=== PATIENT | female | born 1995 | race Caucasian/White ===

== ENCOUNTER → 2020-10-09 | Outpatient (REF) | payer OTHER ==
[2020-10-09 21:40] LABS: CHLAMYDIA DNA AMPLIFICATION NEGATIVE (NEGATIVE); GC DNA AMPLIFICATION NEGATIVE (NEGATIVE)
== END ==
LOC: M LAB REF 17:07
PROVIDERS: ATTEND Physician Assistant
DX: N76.0 Acute vaginitis (principal)

== ENCOUNTER → 2020-12-06 | Outpatient (REF) | payer OTHER | LOC: M LAB REF 16:51 | PROVIDERS: ATTEND Physician Assistant | DX: N76.0 Acute vaginitis (principal) ==

== ENCOUNTER → 2020-12-26 | Outpatient (REF) | payer OTHER ==
[2020-12-26 13:26] LABS: HEMATOCRIT 38.9 % (36.0-47.0); HEMOGLOBIN 12.9 g/dl (12.0-15.5); MEAN CORPUSCULAR HGB CONC 33.2 g/dl (32.0-36.5); MEAN CORPUSCULAR VOLUME 93.5 fl (80.0-96.0); PLATELET COUNT, AUTOMATED 283 10^3/uL (150-450); RED BLOOD COUNT 4.16 10^6/uL (4.00-5.40); WHITE BLOOD COUNT 9.4 10^3/uL (4.0-10.0)
[2020-12-26 14:46] LABS: CHLAMYDIA DNA AMPLIFICATION NEGATIVE (NEGATIVE); GC DNA AMPLIFICATION NEGATIVE (NEGATIVE)
[2020-12-26 14:56] LABS: HEPATITIS C VIRUS ABY INDEX < 0.0 INDEX (<0.8); HIV 1&2 SCREEN CENTAUR NEGATIVE (NEGATIVE)
== END ==
LOC: M PLALAB 09:52
PROVIDERS: ATTEND Obstetrics & Gynecology
DX: Z34.91 Encounter for supervision of normal pregnancy, unspecified, first trimester (principal); Z3A.08 8 weeks gestation of pregnancy

== ENCOUNTER 2021-01-09 10:27 | Emergency (ER) | payer OTHER ==
[~2021-01-09] VITALS: Ht 154.9 cm; Wt 82.3 kg
[2021-01-09] MEDS ORDERED: PRENTAB53 PO (10:33)
--- NOTE | 2021-01-09 11:46 | REP ---
INDICATION: abdominal cramping; 11 weeks ; trauma last week. COMPARISON: None. TECHNIQUE: Real-time sonographic evaluation of gravid uterus performed. FINDINGS: There is a single living intrauterine gestation. The estimated gestational age is 10 weeks 6 days based on a crown-rump length of 40 mm. EDC is 08/01/2021. heart rate is 174 beats per minute. There is no subchorionic hemorrhage. The ovaries are not visualized. IMPRESSION: Viable intrauterine gestation, heart rate 174 beats per minute. No subchorionic hemorrhage. <Electronically signed by Evgeny Renae > 01/09/21 [id number]
[2021-01-09] MEDS ORDERED: CEPH500C PO (12:51)
[2021-01-09 12:57] VITALS: BP 111/73
== END 2021-01-09 13:30 | disposition home or self-care (01) ==
LOC: M ED 10:27
DX: O9A.211 Injury, poisoning and certain other consequences of external causes complicating pregnancy, first trimester (principal); R10.2 Pelvic and perineal pain; O23.40 Unspecified infection of urinary tract in pregnancy, unspecified trimester; Z3A.11 11 weeks gestation of pregnancy; Z88.2 Allergy status to sulfonamides

== ENCOUNTER → 2021-01-11 | Outpatient (REF) | payer OTHER ==
[~2021-01-11] MED LIST: CEPH500C PO; PRENTAB53 PO
== END ==
LOC: M LAB REF 16:35
PROVIDERS: ATTEND Family Medicine
DX: J02.9 Acute pharyngitis, unspecified (principal)

== ENCOUNTER → 2021-01-19 | Outpatient (REF) | payer OTHER | LOC: M SFHCWAGY 13:30 | PROVIDERS: ATTEND Advanced Practice Midwife | DX: Z36.89 Encounter for other specified antenatal screening (principal); Z34.91 Encounter for supervision of normal pregnancy, unspecified, first trimester ==

== ENCOUNTER 2021-02-14 12:53 | Emergency (ER) | payer OTHER ==
[~2021-02-14] VITALS: Ht 154.9 cm; Wt 80.6 kg
[2021-02-14] MEDS ORDERED: NS 1,000 ML IV ONE (15:20)
[2021-02-14] MEDS ORDERED: METOCLOPRAMIDE INJ 10MG/2ML VIAL (J2765 PER 1) IV ONE (15:20)
[2021-02-14 17:28] LABS: BASO % 0.3 % (0.0-1.0); EOS # 0.1 10^3/uL (0.0-0.5); EOS % 0.9 % (0.0-3.0); HEMATOCRIT 40.2 % (36.0-47.0); HEMOGLOBIN 13.3 g/dl (12.0-15.5); LYMPH # 2.5 10^3/uL (1.5-5.0); LYMPH % 27.1 % (24.0-44.0); MEAN CORPUSCULAR HEMOGLOBIN 30.4 pg (27.0-33.0); MEAN CORPUSCULAR HGB CONC 33.1 g/dl (32.0-36.5); MEAN CORPUSCULAR VOLUME 91.8 fl (80.0-96.0); MONO # 0.7 10^3/uL (0.0-0.8); MONO % 7.5 % (2.0-8.0); NEUTROPHILS % 63.8 % (36.0-66.0); PLATELET COUNT, AUTOMATED 259 10^3/uL (150-450); RED BLOOD COUNT 4.38 10^6/uL (4.00-5.40); WHITE BLOOD COUNT 9.4 10^3/uL (4.0-10.0)
[2021-02-14 17:54] LABS: ALBUMIN 3.5 GM/DL (3.2-5.2); ALT/SGPT 47 U/L (12-78); BILIRUBIN,DIRECT < 0.1 MG/DL (0.0-0.2); BILIRUBIN,TOTAL 0.4 MG/DL (0.2-1.0); BLOOD UREA NITROGEN 5 MG/DL (7-18); CALCIUM LEVEL 9.2 MG/DL (8.5-10.1); CARBON DIOXIDE LEVEL 25 MEQ/L (21-32); CHLORIDE LEVEL 104 MEQ/L (98-107); CREATININE FOR GFR 0.35 MG/DL (0.55-1.30); GLOMERULAR FILTRATION RATE > 60.0 (>60); GLUCOSE, FASTING 71 MG/DL (70-100); LIPASE 93 U/L (73-393); POTASSIUM SERUM 5.6 MEQ/L (3.5-5.1); SODIUM LEVEL 136 MEQ/L (136-145); TOTAL PROTEIN 7.6 GM/DL (6.4-8.2)
--- NOTE | 2021-02-14 18:02 | REP ---
INDICATION: n/v unable to get heart tones with doppler. COMPARISON: 01/09/2021. TECHNIQUE: Real-time sonographic evaluation of gravid uterus performed. FINDINGS: There is a single living intrauterine gestation. The estimated gestational age is 16 weeks 0 days based on the prior ultrasound, EDC 08/01/2021. heart rate today is 149 beats per minute. There is a normal amount of amniotic fluid. The position is cephalic. The placenta is anterior and grade 0 with no previa or abruption. Cervix is closed measures 3.6 cm in length. IMPRESSION: Viable intrauterine gestation as discussed above. <Electronically signed by Evgeny Renae > 02/14/21 [id number]
[2021-02-14 18:54] VITALS: BP 111/68
== END 2021-02-14 19:01 | disposition home or self-care (01) ==
LOC: M ED 12:53
DX: O21.9 Vomiting of pregnancy, unspecified (principal); O99.891 Other specified diseases and conditions complicating pregnancy; R19.7 Diarrhea, unspecified; O09.292 Supervision of pregnancy with other poor reproductive or obstetric history, second trimester; Z3A.16 16 weeks gestation of pregnancy; Z88.2 Allergy status to sulfonamides
CPT/HCPCS: 76815; 80047; 80048; 80076; 83690; 85025; 96374; 99284; J2765

== ENCOUNTER → 2021-02-19 | Outpatient (CLI) | payer OTHER | LOC: M WHC 09:35 | PROVIDERS: ATTEND Advanced Practice Midwife | DX: Z34.92 Encounter for supervision of normal pregnancy, unspecified, second trimester (principal) ==

== ENCOUNTER → 2021-02-27 | Outpatient (CLI) | payer OTHER ==
--- NOTE | 2021-02-27 13:55 | REP ---
INDICATION: ANATOMY/EDC 08/01/21 COMPARISON: 02/14/2021 TECHNIQUE: Transabdominal obstetrical ultrasound with color Doppler evaluation. FINDINGS: Examination demonstrates a single live intrauterine in cephalic presentation. motion is identified by technologist. Placenta is noted anterior and grade 0 without evidence for placenta previa or abruption. Amniotic fluid volume is normal. Cervix measures 3.2 cm in length and appears closed.. Gestational age by LMP and 1st U/S 17 weeks 6 days with BENIGNO 08/01/2021. Gestational age by current measurements 17 weeks 6 days with BENIGNO 08/01/2021. FHR equals 147 beats per minute. Estimated weight 219 grams (52ndpercentile). Anatomical assessment demonstrates normal structures including cranium, choroid plexus, cavum, cerebellum/posterior fossa, facial features, lungs, ventricular outflow tracts, diaphragm, stomach, cord insertion/three-vessel cord, kidneys/bladder, spine, and extremities. Limited evaluation of the nose/lips and four-chamber heart. IMPRESSION: Single live intrauterine in cephalic presentation demonstrating appropriate estimated weight. Anatomical limitations as noted above may warrant follow-up. Remainder of the anatomical assessment is complete and normal. <Electronically signed by Emiliano Maynard > 02/27/21 [id number]
== END ==
LOC: M WHC 12:48
PROVIDERS: ATTEND Advanced Practice Midwife
DX: Z34.92 Encounter for supervision of normal pregnancy, unspecified, second trimester (principal)

== ENCOUNTER → 2021-04-13 | Outpatient (CLI) | payer OTHER ==
--- NOTE | 2021-04-13 09:51 | REP ---
INDICATION: F/U ANATOMY COMPARISON: 02/27/2021 TECHNIQUE: Transabdominal obstetrical ultrasound with color Doppler evaluation. FINDINGS: Examination demonstrates a single live intrauterine in breech presentation. motion is identified by technologist. Placenta is noted anterior and grade 1 without evidence for placenta previa or abruption. Amniotic fluid volume is normal. Cervix measures 4.7 cm in length and appears closed.. Selected gestational age: 24 weeks 2 days with BENIGNO 08/01/2021. Gestational age by current measurements 24 weeks 4 days with BENIGNO 07/30/2021. FHR equals 150 beats per minute. Estimated weight 717 grams (56thpercentile). Anatomical assessment demonstrates normal structures including cranium, choroid plexus, cavum, cerebellum/posterior fossa, facial features, lungs, four-chamber heart/ventricular outflow tracts, diaphragm, stomach, cord insertion/three-vessel cord, kidneys/bladder, and extremities. IMPRESSION: Single live intrauterine in breech presentation demonstrating appropriate estimated weight and growth. Anatomical assessment is complete and normal. <Electronically signed by Emiliano Maynard > 04/13/21 [id number]
== END ==
LOC: M WHC 08:17
PROVIDERS: ATTEND Advanced Practice Midwife
DX: Z34.02 Encounter for supervision of normal first pregnancy, second trimester (principal)

== ENCOUNTER → 2021-04-19 | Outpatient (CLI) | payer OTHER | LOC: M PLALAB 12:27 | PROVIDERS: ATTEND Obstetrics & Gynecology | DX: B34.3 Parvovirus infection, unspecified (principal) ==

== ENCOUNTER → 2021-05-22 | Outpatient (CLI) | payer OTHER ==
[2021-05-22 13:32] LABS: HEMATOCRIT 34.1 % (36.0-47.0); HEMOGLOBIN 11.3 g/dl (12.0-15.5); MEAN CORPUSCULAR HEMOGLOBIN 30.7 pg (27.0-33.0); MEAN CORPUSCULAR HGB CONC 33.1 g/dl (32.0-36.5); MEAN CORPUSCULAR VOLUME 92.7 fl (80.0-96.0); PLATELET COUNT, AUTOMATED 270 10^3/uL (150-450); RED BLOOD COUNT 3.68 10^6/uL (4.00-5.40)
== END ==
LOC: M PLALAB 09:29
PROVIDERS: ATTEND Advanced Practice Midwife
DX: Z36.89 Encounter for other specified antenatal screening (principal); Z3A.24 24 weeks gestation of pregnancy

== ENCOUNTER 2021-05-27 14:36 | Outpatient (CLI) | payer OTHER ==
[~2021-05-27] VITALS: Ht 154.9 cm; Wt 79.7 kg
[2021-05-27 14:57] VITALS: BP 101/51
[2021-05-27] MEDS ORDERED: HOME MED LIST COMPLETE! XX SCH (15:00)
[2021-05-27 16:02] VITALS: BP 100/55
--- NOTE | 2021-05-27 16:14 | IPNPDOC ---
Text Note Date of Service The patient was seen on 05/27/21. NOTE Labor and Delivery Triage Note: S: 25-year-old presents with c/o contractions and leakage of clear fluid. Denies contractions, vaginal bleeding or decreased movement. O: vss, AF no ctx Cat 1 tracing Gen: well appearing, NAD Abd: gravid, soft, nttp cx: long/ closed SSE: Negative ferning, negative Valsalv, negative for pooling and nitrazine A/P: 25-year-old 3 para 1 at 30w4d not in PTL or SROM reassuring status -home with PTL precautions and FKCs. -f/u at next OB appt Talisha Farfan MD VS,Tamera, I+O VS, Tamera I+O Vital Signs Date Time Temp Pulse Resp B/P (MAP) Pulse Ox O2 Delivery O2 Flow Rate FiO2 05/27/21 14:57 98.9 122 18 101/51 (68) TALISHA FARFAN MD. May 27, 2021 16:14
== END 2021-05-27 16:23 | disposition home or self-care (01) ==
LOC: M LDO 14:36
PROVIDERS: ATTEND Obstetrics & Gynecology
DX: O26.893 Other specified pregnancy related conditions, third trimester (principal); N89.8 Other specified noninflammatory disorders of vagina; Z3A.30 30 weeks gestation of pregnancy; Z88.2 Allergy status to sulfonamides
CPT/HCPCS: 59025; G0378; G0463

== ENCOUNTER → 2021-06-07 | Outpatient (CLI) | payer OTHER | LOC: M LAB 07:10 | PROVIDERS: ATTEND Advanced Practice Midwife | DX: Z36.89 Encounter for other specified antenatal screening (principal); Z3A.30 30 weeks gestation of pregnancy ==

== ENCOUNTER → 2021-07-03 | Outpatient (REF) | payer OTHER | LOC: M SFHCWAGY 13:04 | PROVIDERS: ATTEND Obstetrics & Gynecology | DX: Z34.83 Encounter for supervision of other normal pregnancy, third trimester (principal) ==

== ENCOUNTER → 2021-10-16 | Outpatient (REF) | payer OTHER ==
[~2021-10-16] MED LIST changes: +ACET-683 PO; +IBUP80TA PO
== END ==
LOC: M LAB REF 17:30
PROVIDERS: ATTEND Physician Assistant
DX: J06.9 Acute upper respiratory infection, unspecified (principal)

== ENCOUNTER → 2021-11-23 | Outpatient (REF) | payer OTHER ==
[2021-11-23 13:14] LABS: APPEARANCE, URINE MANUAL CLEAR (CLEAR); BILIRUBIN, URINE MANUAL NEGATIVE (NEGATIVE); BLOOD URINE MANUAL POSITIVE (NEGATIVE); COLOR, URINE MANUAL YELLOW (YELLOW); GLUCOSE, URINE (UA) MANUAL NEGATIVE (NEGATIVE); KETONE, URINE MANUAL NEGATIVE (NEGATIVE); LEUKOCYTE ESTERASE, URINE MAN NEGATIVE (NEGATIVE); NITRITE, URINE MANUAL NEGATIVE (NEGATIVE); PROTEIN, URINE MANUAL NEGATIVE (NEGATIVE); SPECIFIC GRAVITY,URINE MANUAL 1.015 (1.002-1.035); UROBILINOGEN, URINE MANUAL NORMAL (NORMAL)
[2021-11-23 13:25] LABS: BACTERIA, URINE SMALL AMOUNT; MUCUS, URINE SMALL AMOUNT (NEGATIVE); SQUAMOUS EPITHELIAL CELL URINE SMALL AMOUNT /hpf (SMALL AMT); WBC, URINE 0-1 /hpf (0-3)
== END ==
LOC: M LAB REF 11:52
PROVIDERS: ATTEND Obstetrics & Gynecology
DX: N39.42 Incontinence without sensory awareness (principal); N39.41 Urge incontinence; N81.11 Cystocele, midline

== ENCOUNTER → 2021-11-26 | Outpatient (CLI) | payer OTHER | LOC: M RAD 15:52 | PROVIDERS: ATTEND Physician Assistant | DX: M25.561 Pain in right knee (principal) ==

== ENCOUNTER → 2021-12-05 | Outpatient (CLI) | payer OTHER ==
[2021-12-05 10:57] LABS: BASO # 0.1 10^3/uL (0.0-0.2); BASO % 0.6 % (0.0-1.0); EOS # 0.1 10^3/uL (0.0-0.5); EOS % 1.3 % (0.0-3.0); HEMATOCRIT 41.3 % (36.0-47.0); HEMOGLOBIN 13.4 g/dl (12.0-15.5); LYMPH # 3.1 10^3/uL (1.5-5.0); LYMPH % 32.1 % (24.0-44.0); MEAN CORPUSCULAR HEMOGLOBIN 28.9 pg (27.0-33.0); MEAN CORPUSCULAR HGB CONC 32.4 g/dl (32.0-36.5); MEAN CORPUSCULAR VOLUME 89.2 fl (80.0-96.0); MONO # 0.6 10^3/uL (0.0-0.8); MONO % 6.7 % (2.0-8.0); NEUTROPHILS # 5.6 10^3/uL (1.5-8.5); PLATELET COUNT, AUTOMATED 302 10^3/uL (150-450); RED BLOOD COUNT 4.63 10^6/uL (4.00-5.40); WHITE BLOOD COUNT 9.5 10^3/uL (4.0-10.0)
[2021-12-05 11:20] LABS: HEMOGLOBIN A1c 5.5 %
[2021-12-05 11:45] LABS: ALBUMIN 3.6 GM/DL (3.2-5.2); ALT/SGPT 21 U/L (12-78); BILIRUBIN,TOTAL 0.3 MG/DL (0.2-1.0); BLOOD UREA NITROGEN 10 MG/DL (7-18); CALCIUM LEVEL 8.8 MG/DL (8.5-10.1); CARBON DIOXIDE LEVEL 26 MEQ/L (21-32); CHLORIDE LEVEL 108 MEQ/L (98-107); CREATININE FOR GFR 0.64 MG/DL (0.55-1.30); FREE T4 1.17 NG/DL (0.76-1.46); GLOMERULAR FILTRATION RATE > 60.0 (>60); GLUCOSE, FASTING 72 MG/DL (70-100); POTASSIUM SERUM 4.4 MEQ/L (3.5-5.1); SODIUM LEVEL 139 MEQ/L (136-145); THYROID STIMULATING HORMONE 0.535 uIU/ML (0.358-3.740); TOTAL PROTEIN 7.1 GM/DL (6.4-8.2)
== END ==
LOC: M PLALAB 09:02
PROVIDERS: ATTEND Physician Assistant
DX: R63.5 Abnormal weight gain (principal)

== ENCOUNTER → 2022-02-07 | Outpatient (REF) | payer OTHER ==
[2022-02-07 17:48] LABS: APPEARANCE, URINE CLEAR (CLEAR); BACTERIA, URINE AUTO NEGATIVE (NEGATIVE); BILIRUBIN, URINE AUTO NEGATIVE (NEGATIVE); BLOOD, URINE BLOOD NEGATIVE (NEGATIVE); COLOR, URINE YELLOW (YELLOW); GLUCOSE, URINE (UA) AUTO NEGATIVE (NEGATIVE); KETONE, URINE AUTO NEGATIVE (NEGATIVE); LEUKOCYTE ESTERASE, URINE AUTO NEGATIVE (NEGATIVE); MUCUS, URINE SMALL (NEGATIVE); NITRITE, URINE AUTO NEGATIVE (NEGATIVE); PROTEIN, URINE AUTO NEGATIVE (NEGATIVE); RBC, URINE AUTO 0 /HPF (0-3); SPECIFIC GRAVITY URINE AUTO 1.024 (1.002-1.035); SQUAMOUS EPITHELIAL CELL UR AU 1 /HPF (0-6); UROBILINOGEN, URINE AUTO 0.2 mg/dL (0.0-2.0); WBC, URINE AUTO 1 /HPF (0-3)
== END ==
LOC: M LAB REF 16:55
PROVIDERS: ATTEND Nurse Practitioner Adult Health
DX: R35.0 Frequency of micturition (principal)

== ENCOUNTER → 2022-02-08 | Outpatient (CLI) | payer OTHER | LOC: M WHC 06:58 | PROVIDERS: ATTEND Physician Assistant | DX: R10.2 Pelvic and perineal pain (principal) ==

== ENCOUNTER 2022-09-16 18:24 | Emergency (ER) | payer OTHER ==
[~2022-09-16] VITALS: Ht 154.9 cm; Wt 76.0 kg
[2022-09-17 01:08] LABS: BASO # 0.1 10^3/uL (0.0-0.2); BASO % 0.5 % (0.0-1.0); EOS # 0.1 10^3/uL (0.0-0.5); EOS % 0.6 % (0.0-3.0); HEMOGLOBIN 13.1 g/dl (12.0-15.5); LYMPH # 4.7 10^3/uL (1.5-5.0); LYMPH % 35.4 % (24.0-44.0); MEAN CORPUSCULAR VOLUME 93.8 fl (80.0-96.0); MONO # 0.9 10^3/uL (0.0-0.8); MONO % 6.9 % (2.0-8.0); NEUTROPHILS # 7.4 10^3/uL (1.5-8.5); NEUTROPHILS % 56.4 % (36.0-66.0); PLATELET COUNT, AUTOMATED 309 10^3/uL (150-450); RED BLOOD COUNT 4.37 10^6/uL (4.00-5.40); WHITE BLOOD COUNT 13.2 10^3/uL (4.0-10.0)
[2022-09-17 01:40] LABS: CPK CREATINE PHOSPHOKINASE 62 U/L (34-145)
[2022-09-17] MEDS ORDERED: KETOROLAC 30 MG/ML 1ML VIAL IV ONE (01:50)
[2022-09-17 01:55] LABS: BLOOD UREA NITROGEN 10 MG/DL (9-23); CALCIUM LEVEL 8.7 MG/DL (8.5-10.1); CARBON DIOXIDE LEVEL 21 MMOL/L (20-31); CHLORIDE LEVEL 105 MMOL/L (98-107); CK-MB VALUE MASS < 1.0 NG/ML (<3.6); CREATININE FOR GFR 0.66 MG/DL (0.55-1.30); GLOMERULAR FILTRATION RATE > 60.0 (>60); GLUCOSE, FASTING 89 MG/DL (60-100); MB/CK RELATIVE INDEX 1.61 (< OR =4); POTASSIUM SERUM 4.1 MMOL/L (3.5-5.1); SODIUM LEVEL 138 MMOL/L (136-145)
[2022-09-17] MEDS ORDERED: KETOROLAC 30 MG/ML 1ML VIAL IM ONE (02:00)
[2022-09-17] MEDS ORDERED: NAPR-837 PO (02:06)
[2022-09-17] MEDS ORDERED: ANEC4CRE3 TOP (02:06)
[2022-09-17 02:16] VITALS: BP 120/70
== END 2022-09-17 02:16 | disposition home or self-care (01) ==
LOC: M ED 18:24
DX: R07.89 Other chest pain (principal); Z82.49 Family history of ischemic heart disease and other diseases of the circulatory system; Z88.2 Allergy status to sulfonamides

== ENCOUNTER → 2022-10-22 | Outpatient (CLI) | payer OTHER ==
[~2022-10-22] MED LIST changes: +ANEC4CRE3 TOP; +NAPR-837 PO
== END ==
LOC: M PLALAB 15:52
PROVIDERS: ATTEND Nurse Practitioner Adult Health
DX: K21.9 Gastro-esophageal reflux disease without esophagitis (principal)

== ENCOUNTER → 2023-01-02 | Outpatient (CLI) | payer OTHER ==
[2023-01-02 14:44] LABS: APPEARANCE, URINE CLEAR (CLEAR); BACTERIA, URINE AUTO NEGATIVE (NEGATIVE); BILIRUBIN, URINE AUTO NEGATIVE (NEGATIVE); BLOOD, URINE BLOOD NEGATIVE (NEGATIVE); COLOR, URINE YELLOW (YELLOW); GLUCOSE, URINE (UA) AUTO NEGATIVE (NEGATIVE); KETONE, URINE AUTO NEGATIVE (NEGATIVE); LEUKOCYTE ESTERASE, URINE AUTO NEGATIVE (NEGATIVE); MUCUS, URINE SMALL (NEGATIVE); NITRITE, URINE AUTO NEGATIVE (NEGATIVE); PROTEIN, URINE AUTO NEGATIVE (NEGATIVE); RBC, URINE AUTO 0 /HPF (0-3); SPECIFIC GRAVITY URINE AUTO 1.025 (1.002-1.035); SQUAMOUS EPITHELIAL CELL UR AU 0 /HPF (0-6); UROBILINOGEN, URINE AUTO 0.2 mg/dL (0.0-2.0); WBC, URINE AUTO 0 /HPF (0-3)
[2023-01-02 14:49] LABS: BASO # 0.1 10^3/uL (0.0-0.2); BASO % 0.6 % (0.0-1.0); EOS # 0.1 10^3/uL (0.0-0.5); EOS % 0.8 % (0.0-3.0); HEMATOCRIT 40.2 % (36.0-47.0); HEMOGLOBIN 12.8 g/dl (12.0-15.5); LYMPH # 2.9 10^3/uL (1.5-5.0); LYMPH % 34.9 % (24.0-44.0); MEAN CORPUSCULAR HEMOGLOBIN 29.5 pg (27.0-33.0); MEAN CORPUSCULAR HGB CONC 31.8 g/dl (32.0-36.5); MEAN CORPUSCULAR VOLUME 92.6 fl (80.0-96.0); MONO # 0.5 10^3/uL (0.0-0.8); MONO % 6.5 % (2.0-8.0); NEUTROPHILS # 4.7 10^3/uL (1.5-8.5); PLATELET COUNT, AUTOMATED 261 10^3/uL (150-450); RED BLOOD COUNT 4.34 10^6/uL (4.00-5.40); WHITE BLOOD COUNT 8.3 10^3/uL (4.0-10.0)
[2023-01-02 15:21] LABS: ALBUMIN 3.5 G/DL (3.2-5.2); ALKALINE PHOSPHATASE 70 U/L (46-116); ALT/SGPT 14 U/L (7.0-40); AST/SGOT 21 U/L (<34); BILIRUBIN,TOTAL 0.3 MG/DL (0.3-1.2); BLOOD UREA NITROGEN 7 MG/DL (9-23); CALCIUM LEVEL 8.4 MG/DL (8.5-10.1); CARBON DIOXIDE LEVEL 25 MMOL/L (20-31); CHLORIDE LEVEL 106 MMOL/L (98-107); CREATININE FOR GFR 0.57 MG/DL (0.55-1.30); GLOMERULAR FILTRATION RATE > 60.0 (>60); GLUCOSE, FASTING 70 MG/DL (60-100); POTASSIUM SERUM 3.8 MMOL/L (3.5-5.1); SODIUM LEVEL 139 MMOL/L (136-145); TOTAL PROTEIN 6.4 G/DL (5.7-8.2)
== END ==
LOC: M PLALAB 10:36
PROVIDERS: ATTEND Physician Assistant
DX: Z01.818 Encounter for other preprocedural examination (principal)

== ENCOUNTER 2023-01-21 06:01 | Observation (INO) | payer OTHER ==
[2023-01-21] VITALS (7 sets, daily range): BP systolic 110–136; BP diastolic 73–82
[~2023-01-21] VITALS: Ht 154.9 cm; Wt 70.8 kg
[~2023-01-21 06:01] MED LIST changes: +HEPARIN SOD (PORCINE) 5000UNITS/ML 1ML VIAL/SYRINGE SQ ONE; +TRI-1TAB20 PO; +ceFAZolin SOD 2 GM in IV 1 EA IV ONE
[2023-01-21] MEDS ORDERED: LIDOCAINE 1% SDV 5ML VIAL SC PRN (06:25)
[2023-01-21] MEDS ORDERED: LR 1,000 ML IV SCH (06:25)
[2023-01-21] MEDS ORDERED: propofoL 200 MG/20 ML VIAL As Ordered ONE (06:51)
[2023-01-21] MEDS ORDERED: LIDOCAINE 2% 100MG/5ML SDV (FOR ANES.) As Ordered ONE (06:51)
[2023-01-21] MEDS ORDERED: ROCURONIUM BROMIDE 50MG/5ML VIAL As Ordered ONE ×2 (06:51→08:06)
[2023-01-21] MEDS ORDERED: SUGAMMADEX SODIUM 500 MG/5 ML VIAL (BRIDION) As Ordered ONE (06:51)
[2023-01-21] MEDS ORDERED: ONDANSETRON 4MG 2ML VIAL As Ordered ONE (06:52)
[2023-01-21] MEDS ORDERED: fentaNYL 250 MCG/5 ML INJECTION As Ordered ONE (06:59)
[2023-01-21] MEDS ORDERED: MIDAZOLAM INJ 2MG/2ML VIAL As Ordered ONE (06:59)
[2023-01-21] MEDS ORDERED: BUPIVACAINE LIPOSOME/PF 1.3% 20ML VIAL (13.3MG/ML)(EXPAREL) As Ordered ONE (07:26)
[2023-01-21] MEDS ORDERED: BUPIVACAINE HCL 0.25% 30ML VIAL As Ordered ONE (07:26)
[2023-01-21] MEDS ORDERED: GENTAMICIN SULF 80MG/2ML VIAL As Ordered ONE (07:26)
[2023-01-21] MEDS ORDERED: ACET-839 PO (07:28)
[2023-01-21] MEDS ORDERED: HOME MED LIST COMPLETE! XX SCH (07:30)
[2023-01-21] MEDS ORDERED: ACETAMINOPHEN 1000MG 100ML IV BAG As Ordered ONE (07:59)
[2023-01-21] MEDS ORDERED: ePHEDrine SULFATE 25 MG/5 ML(5MG/ML) SYRINGE As Ordered ONE (08:52)
[2023-01-21] MEDS ORDERED: HYDROmorphone HCL 2MG/ML 1ML VIAL As Ordered ONE (09:06)
[2023-01-21] MEDS ORDERED: oxyCODONE 5MG TAB PO PRN (11:05)
[2023-01-21] MEDS ORDERED: ONDANSETRON 4MG 2ML VIAL IV PRN (11:05)
[2023-01-21] MEDS ORDERED: traMADol 50 MG TAB PO PRN (11:15)
[2023-01-21] MEDS ORDERED: ACETAMINOPHEN TAB 650MG DOSE (2X325MG) PO PRN (11:15)
[2023-01-21] MEDS: fentaNYL 100 MCG/2 ML INJECTION IV PRN ×2 (11:45→11:54)
[2023-01-21] MEDS ORDERED: METOCLOPRAMIDE INJ 10MG/2ML VIAL IV PRN (11:55)
[2023-01-21] MEDS ORDERED: ceFAZolin SOD 2 GM in IV 1 EA IV ONE (12:00)
[2023-01-21] MEDS: LR 1,000 ML IV SCH ×2 (13:13→23:28)
[2023-01-21] MEDS: ONDANSETRON 4MG 2ML VIAL IV PRN ×2 (17:45→21:47)
[2023-01-21] MEDS ORDERED: diphenhydrAMINE 25MG CAP PO ONE (23:15)
[2023-01-21] MEDS: PERCOCET 5MG/325MG TAB PO PRN (23:28)
[2023-01-22 02:00] VITALS: BP 109/59
[2023-01-22] MEDS: PERCOCET 5MG/325MG TAB PO PRN (05:32)
[2023-01-22 06:00] VITALS: BP 108/61
[2023-01-22 10:00] VITALS: BP 114/68
[2023-01-22] MEDS ORDERED: TRAM50TA2 PO (12:50)
[2023-01-22] MEDS ORDERED: ONDA4TAB6 PO (13:31)
[2023-01-23] MEDS ORDERED: OXYC1TAB23 PO (14:22)
== END 2023-01-22 14:25 | disposition home or self-care (01) ==
LOC: M SDC 06:01 → M MS5PR 11:13
PROVIDERS: ADMIT Plastic Surgery Surgery of the Hand; ATTEND Plastic Surgery Surgery of the Hand
DX: N62 Hypertrophy of breast (principal); M54.2 Cervicalgia; M54.6 Pain in thoracic spine; Z79.3 Long term (current) use of hormonal contraceptives; Z88.2 Allergy status to sulfonamides
CPT/HCPCS: 19318; 81025; 87635; 88305; 96374; 96376; C9290; J0131; J0690; J1100; J1170; J1580; J2250; J2405; J2765; J3010; S0020